=== PATIENT | female | born 1995 | race Hispanic/Latino ===

== ENCOUNTER 2017-06-24 12:42 | Emergency (ER) | payer OTHER ==
[~2017-06-24] VITALS: Ht 160 cm; Wt 77.4 kg
[~2017-06-24 12:42] MED LIST: MOTRIN600 MG PO; NAPROXEN500 MG PO; SOLODYN55 MG PO
[2017-06-24 13:17] LABS: HEMATOCRIT 40.5 % (36.0-46.0); HEMOGLOBIN 14.2 G/DL (11.9-15.5); MCH 31.3 PG (29.0-34.0); MCHC 35.1 G/DL (30.0-36.0); MCV 89.4 FL (83-99); PLATELET COUNT 370 K/uL (156-360); RBC DIS.WIDTH-CV 11.9 % (11.8-14.6); RBC DIS.WIDTH-SD 38.7 % (39-53); RED BLOOD COUNT 4.53 M/uL (3.80-5.20); WHITE BLOOD COUNT 8.5 K/uL (4.1-10.2)
[2017-06-24 13:27] LABS: ALBUMIN 5.6 g/dL (3.2-4.8)
[2017-06-24 13:28] LABS: CHLORIDE 104 mEq/L (99-109); POTASSIUM 3.9 mEq/L (3.7-5.4); SODIUM 139 mEq/L (136-147)
[2017-06-24 13:30] LABS: GLUCOSE 88 mg/dL (70-99); TOTAL PROTEIN 9.4 g/dL (6.4-8.3)
[2017-06-24 13:32] LABS: TOTAL BILIRUBIN 0.5 mg/dL (0.0-1.0)
[2017-06-24 13:33] LABS: ALKALINE PHOSPHATASE 146 IU/L (3-129)
[2017-06-24 13:34] LABS: CREATININE 0.8 mg/dL (0.6-1.3); GFR ESTIMATE (CALCULATED) > 59 mL/min/
[2017-06-24 13:35] LABS: AST (GOT) 22 IU/L (2-34); DIRECT BILIRUBIN 0.3 mg/dL (0.0-0.3); UREA NITROGEN (BUN) 8 mg/dL (9-23)
[2017-06-24 13:37] LABS: ALT (GPT) 21 IU/L (3-49); LIPASE 34 U/L (1.0-51.0)
[2017-06-24 13:45] LABS: QUANTITATIVE HCG < 4.0 MIU/ML
[2017-06-24 14:22] LABS: APPEARANCE SL.HAZY ((CLEAR)); BILIRUBIN NEGATIVE; BLOOD NEGATIVE; COLOR YELLOW ((YELLOW)); GLUCOSE (STRIP) NEGATIVE; KETONES NEGATIVE; LEUKOCYTES LARGE; NITRITE NEGATIVE; PROTEIN (STRIP) NEGATIVE; SPECIFIC GRAVITY 1.012 (1.000-1.030); UROBILINOGEN 0.2 MG/DL (0.2-1.0)
[2017-06-24 14:25] LABS: MONOSPOT (MONONUCLEOSIS SEROL) NEGATIVE
[2017-06-24 14:42] LABS: EPITHELIAL CELLS 2+ /HPF
[2017-06-24 14:43] LABS: RED BLOOD CELLS 0-5 /HPF (0-5)
[2017-06-24 14:44] LABS: BACTERIA 1+ /HPF; MUCUS NONE SEEN /LPF
[2017-06-24] MEDS ORDERED: CIPRO500 MG PO (15:11)
[2017-06-24 15:35] VITALS: BP 104/60
== END 2017-06-24 15:37 | disposition home or self-care (01) ==
LOC: EME 12:42
PROVIDERS: Emergency Medicine
DX: N39.0 Urinary tract infection, site not specified (principal); R50.9 Fever, unspecified; R42 Dizziness and giddiness; R51 Headache
CPT/HCPCS: 71046; 80048; 80076; 81003; 83690; 84702; 85027; 86308; 87077; 87086; 87186; 87502; 99281; 99285; J0780; J7030